=== PATIENT | female | born 1935 | race Two or more races ===

== ENCOUNTER 2021-09-13 20:59 | Emergency (ER) | payer MEDICARE, OTHER ==
[~2021-09-13] VITALS: Ht 154.9 cm; Wt 48.5 kg
[2021-09-13] MEDS ORDERED: amLODIPine BESYLATE 5 MG TAB PO ONE (21:30)
[2021-09-13 21:54] LABS: Basophils # (auto) 0 10 ^3/uL (0-0.2); Eosinophils # (auto) 0.1 10 ^3/uL (0-0.8); Mean Corpuscular Hgb Conc. 34.8 g/dL (32.0-36.0); Nucleated Red Blood Cells % 0.1 %; White Blood Cell 8.3 10^3/uL (4.4-10.8)
[2021-09-13 21:57] LABS: Basophils % (auto) 0.3 % (0.0-2.0); Eosinophils % (auto) 1.1 % (0.0-7.0); Hematocrit 37.5 % (36.0-46.0); Lymphocytes # (auto) 2.3 10 ^3/uL (0.4-5.4); Lymphocytes % (auto) 27.4 % (10.0-50.0); Mean Corpuscular Hemoglobin 34.5 pg (28.0-32.0); Mean Corpuscular Volume 99.2 fL (80.0-100.0); Monocytes # (auto) 0.7 10 ^3/uL (0-1.3); Monocytes % (auto) 8.9 % (0.0-12.0); Neutrophils # (auto) 5.1 10 ^3/uL (1.6-8.6); Neutrophils % (auto) 62.3 % (37.0-80.0); Red Blood Cells 3.78 10^6/uL (4.0-5.20); Red Cell Distribution Width 13.1 % (11.8-14.3)
[2021-09-13] MEDS ORDERED: SODIUM CHLORIDE 0.9% 1,000 ML IV ONE (22:00)
[2021-09-13] MEDS ORDERED: LABETALOL HCL 5 MG/ML 4ML SYRINGE IV ONE (22:00)
[2021-09-13 22:11] LABS: Albumin 3.6 g/dL (3.4-5.0); BUN/Creatinine Ratio 25.6; Calcium 9.2 mg/dL (8.5-10.1); Potassium 4.1 mmol/L (3.5-5.1)
[2021-09-13 22:15] LABS: Bilirubin, Total 0.6 mg/dL (0.2-1.0); Total Protein 8.1 g/dL (6.4-8.2)
[2021-09-13 23:00] VITALS: BP 173/67
== END 2021-09-14 01:22 | disposition short-term general hospital (02) ==
LOC: ER 21:00
DX: S06.5X0A Traumatic subdural hemorrhage without loss of consciousness, initial encounter (principal); I10 Essential (primary) hypertension; W18.39XA Other fall on same level, initial encounter; Y93.89 Activity, other specified; Y92.89 Other specified places as the place of occurrence of the external cause; Y99.8 Other external cause status
CPT/HCPCS: 36415; 70450; 80053; 84484; 85025; 93005; 96365; 99291; J3490

== ENCOUNTER 2025-01-10 21:23 | Emergency (ER) | payer OTHER ==
[~2025-01-10] VITALS: Ht 154.9 cm; Wt 48.5 kg
--- NOTE | 2025-01-10 22:31 | ED.PDOC ---
History of Present Illness HPI Comments 89 y/o F is [id number] daughter for c/c of epistaxis. Patient is reported to have spontaneous onset of bleedings, while in the bathroom, 20x minutes prior to arrival. Significant history for CKF III and HTN. Upon arrival to ED triage, patient was found hypertensive at 206/82. Only additional notable history of being started on a new medication, recently. Denial of any vision or speech changes, headache, or further associated symptoms. Chief Complaint: High Blood Pressure Time Seen by MD: 21:45 Reviewed Notes: Nurses Notes, Medications, Allergies Allergies: Coded Allergies: NO KNOWN ALLERGIES (Unverified , 09/13/21) Information Source: Patient, Relative Mode of Arrival: Ambulatory Severity: Moderate Timing: Minutes Duration: Since onset Prehospital treatment: None Past Medical History PAST MEDICAL HISTORY: CKF (III), HTN Surgical History: Denies all surgeries WELLNESS AMBASSADOR History: No Pertinent WELLNESS AMBASSADOR History Family History Family History: Reviewed,noncontributory to illness, No family hx of Cancer, No family hx of DM, No family hx of Heart al, No family hx of HTN, No family hx ofKidney al, No family hx of Liver al, No family hx of Lung al, No family hx of Stroke Social History Smoker: Non-Smoker Alcohol: Denies ETOH Use Drugs: Denies Drug Use Lives In: Home, Assisted Care All Other Systems: Reviewed and Negative (Comprehensive systems review obtained and negative except for what is stated in the HPI.) Physical Exam General Appearance: Moderate Distress HEENT: Pharynx Normal, TMs Normal, Other (Anterior nosebleed) Neck: Full Range of Motion, Non-Tender, Normal, Normal Inspection Respiratory: Chest Non-Tender, Lungs Clear, No Accessory Muscle Use, No Respiratory Distress, Normal Breath Sounds Cardiovascular: No Edema, No JVD, No Murmur, No Gallop, Normal Peripheral Pulses, Regular Rate/Rhythm Breast Exam: Deferred Gastrointestinal: No Organomegaly, Non Tender, No Pulsatile Mass, Normal Bowel Sounds, Soft Genitalia: Deferred Pelvic: Deferred Rectal: Deferred Extremities: No calf tenderness, Normal capillary refill, Normal inspection, Normal range of motion, Non-tender, No pedal edema Musculoskeletal : Apperance: Normal Neurologic: Alert, thread marker II-XII nml as Tested, No Motor Deficits, Normal Affect, Normal Mood, No Sensory Deficits Cerebellar Function: NOT DONE Reflexes: NOT DONE Skin: Dry, Normal Color, Warm Peripheral Pulses: 3+ Radial (R), 3+ Radial (L) Lymphatic: No Adenopathy Was a procedure done? Was a procedure done?: No EKG EKG : Pulse Rate (adult): 95 [place]: Normal Cardiac Rhythm: ST Block: None Hypertrophy: None ST: Normal Differential Dx Considerations may include: epistaxis, anemia, hypertensive emergency, among others X-Ray, Labs, Meds, VS Vital Signs Date Time Temp Pulse Resp B/P (MAP) Pulse Ox O2 Delivery O2 Flow Rate FiO2 01/10/25 22:53 183/62 01/10/25 22:52 98.0 66 14 183/62 (102) 98 98.0 01/10/25 22:31 95 01/10/25 21:48 95 01/10/25 21:31 98.6 96 16 206/82 100 98.6 Current Medications Medications (Trade) Dose Ordered Sig/Terell Route Start Time Stop Time Status Last Admin Clonidine HCl (Catapres Tablet) 0.2 mg ONCE ONCE PO 01/10/25 22:00 01/10/25 22:01 DC 01/10/25 22:53 Patient alert. Blood pressure elevated. She does have nosebleed. Answering questions. Bleeding stopped. Moving all extremities. No neurological deficits. No leg swelling. No chest pain. No shortness a breath. Denies headache. Denies dizziness. EKG reviewed does not show any acute changes chronic changes. Was given clonidine. Explained to the family. Was told to follow up with her primary care physician. Was told to come back if there is any problem. Time of 1ST Reevaluation: 22:15 Reevaluation 1ST: Unchanged Patient Education/Counseling: Diagnosis, Treatment Family Education/Counseling: Diagnosis, Treatment SEPSIS Sepsis Screen Date sepsis recognized/suspect: Jan 10, 2025 Time Sepsis recognized/suspect: 2138 Recent Procedure: No On Antibiotic Therapy: No Respiratory Rate >20: No Heart Rate >90: No Temp<36 C (96.8 F) or >38.3 C: No SBP <90 or MAP <65 mmHG: No New Acute Mental Status Change: No Is the patient on CPAP, BIPAP,: No Vital Signs Date Time Temp Pulse Resp B/P (MAP) Pulse Ox O2 Delivery O2 Flow Rate FiO2 01/10/25 22:53 183/62 01/10/25 22:52 98.0 66 14 183/62 (102) 98 98.0 01/10/25 22:31 95 01/10/25 21:48 95 01/10/25 21:31 98.6 96 16 206/82 100 98.6 Medications Medications Dose Ordered Sig/Terell Route Start Time Stop Time Status Last Admin Dose Admin Clonidine HCl 0.2 mg ONCE ONCE PO 01/10/25 22:00 01/10/25 22:01 DC 01/10/25 22:53 Departure 1 Departure Time of Disposition: 23:16 Impression: Primary Impression: Hypertensive urgency Additional Impression: Epistaxis Disposition: 01 HOME / SELF CARE / HOMELESS Condition: Good Discharged With: Self Critical Care Note Critical Care Time?: No Stability Stability form required: No Heart Score Heart Score: Heart Score Response (Comments) Value History N/A 0 EKG N/A 0 Age N/A 0 Risk Factors N/A 0 Troponin N/A 0 Total 0 I personally scribed for JAYMIE DAWKINS MD ([email or web address]) on 01/10/25 at 22:31. Electronically submitted by Noe Koenig ([email or web address]). JAYMIE DAWKINS MD Jan 10, 2025 22:31
[2025-01-10 22:52] VITALS: BP 183/62; PULSE 66; RESP 14; TEMP 98; O2SAT 98
--- NOTE | 2025-01-13 11:54 | ECG ---
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
== END 2025-01-10 23:59 | disposition home or self-care (01) ==
LOC: ER 21:23
DX: R04.0 Epistaxis (principal); I16.0 Hypertensive urgency; I10 Essential (primary) hypertension; Z79.899 Other long term (current) drug therapy
CPT/HCPCS: 93005